=== PATIENT | male | born 1950 | race Caucasian/White ===

== ENCOUNTER 2019-07-28 08:14 | Inpatient (IN) | payer MEDICARE, OTHER ==
[~2019-07-28] VITALS: Ht 182.9 cm; Wt 80.0 kg
[~2019-07-28 08:14] MED LIST: CEPH500C PO
[2019-07-28 08:19] VITALS: Ht 182.9 cm; Wt 80.0 kg
[2019-07-28] MEDS ORDERED: VANCOMYCIN 1 GM (PMX) 250 ML IVPB STA (08:25)
[2019-07-28] MEDS ORDERED: PIPER-TAZO 3.375 GM IV (PMX) 100 ML IVPB STA (08:25)
[2019-07-28] MEDS ORDERED: ACETAMINOPHEN 325 MG TAB PO PRN ×2 (10:00→11:30)
[2019-07-28] MEDS ORDERED: ONDANSETRON 4 MG INJ IV PRN (10:00)
[2019-07-28] MEDS ORDERED: HYDROCODONE/APAP (5/325) TAB PO PRN (11:30)
[2019-07-28] MEDS ORDERED: NACL 0.9% 3 ML SYG IV SCH (11:30)
[2019-07-28] MEDS ORDERED: morphine 2 MG INJ IV PRN (11:30)
[2019-07-28] MEDS ORDERED: VANCOMYCIN IV PER PHARMACY XX SCH (11:30)
[2019-07-28] MEDS ORDERED: PIPER-TAZO 3.375 GM IV (PMX) 100 ML IVPB SCH (12:00)
[2019-07-28 16:00] VITALS: BP 114/73; PULSE 62; RESP 18
[2019-07-28] MEDS: PIPER-TAZO 3.375 GM IV (PMX) 100 ML IVPB SCH ×2 (16:56→23:36)
[2019-07-28] MEDS: SOD CHLORIDE 0.9% 1,000 ML IV SCH ×2 (16:57→20:44)
[2019-07-28 20:11] VITALS: BP 111/66; PULSE 66; RESP 18
[2019-07-28] MEDS: VANCOMYCIN 1.25 GM/NS 250 ML 250 ML IVPB SCH (20:19)
[2019-07-29 02:11] VITALS: BP 102/66; PULSE 60; RESP 18
[2019-07-29] MEDS: PIPER-TAZO 3.375 GM IV (PMX) 100 ML IVPB SCH ×3 (06:28→17:52)
[2019-07-29] MEDS: SOD CHLORIDE 0.9% 1,000 ML IV SCH ×2 (06:31→17:09)
[2019-07-29 08:14] VITALS: BP 106/66; PULSE 59; RESP 19
[2019-07-29] MEDS: VANCOMYCIN 1.25 GM/NS 250 ML 250 ML IVPB SCH ×2 (08:48→20:11)
[2019-07-29 15:22] VITALS: BP 110/67; PULSE 55; RESP 19
[2019-07-29 19:57] VITALS: BP 118/74; PULSE 63; RESP 18
[2019-07-30] MEDS: PIPER-TAZO 3.375 GM IV (PMX) 100 ML IVPB SCH ×4 (00:02→18:31)
[2019-07-30 02:20] VITALS: BP 103/61; PULSE 60; RESP 18
[2019-07-30] MEDS: SOD CHLORIDE 0.9% 1,000 ML IV SCH ×4 (03:09→23:09)
[2019-07-30 07:17] VITALS: BP 114/67; PULSE 49; RESP 18
[2019-07-30] MEDS: VANCOMYCIN 1.25 GM/NS 250 ML 250 ML IVPB SCH ×2 (08:44→20:40)
[2019-07-30] MEDS ORDERED: LIDOCAINE 1% (MDV) 20 ML INJ ONE (09:28)
[2019-07-30] MEDS ORDERED: IOHEXOL 240 MG/ML INJ SCH (10:30)
[2019-07-30 14:18] VITALS: BP 113/70; PULSE 56; RESP 18
[2019-07-30 20:18] VITALS: BP 116/76; PULSE 61; RESP 18
[2019-07-31] MEDS: PIPER-TAZO 3.375 GM IV (PMX) 100 ML IVPB SCH ×4 (00:40→18:17)
[2019-07-31 02:56] VITALS: BP 110/59; PULSE 55; RESP 18
[2019-07-31] MEDS: SOD CHLORIDE 0.9% 1,000 ML IV SCH (05:41)
[2019-07-31 07:39] VITALS: BP 111/62; PULSE 70; RESP 19
[2019-07-31] MEDS: VANCOMYCIN 1.25 GM/NS 250 ML 250 ML IVPB SCH ×2 (09:00→20:44)
[2019-07-31 13:28] VITALS: BP 120/69; PULSE 48; RESP 18
[2019-07-31 20:10] VITALS: BP 115/74; PULSE 60; RESP 18
[2019-08-01] VITALS (12 sets, daily range): BP systolic 102–136; BP diastolic 60–84; PULSE 51–98; RESP 13–25
[2019-08-01] MEDS: PIPER-TAZO 3.375 GM IV (PMX) 100 ML IVPB SCH ×2 (00:17→05:39)
[2019-08-01] MEDS ORDERED: SUCCINYLCHOLINE CHLORIDE 100 MG/5 ML SYG IV ONE (07:41)
[2019-08-01] MEDS ORDERED: PROPOFOL 20 ML ONE (07:41)
[2019-08-01] MEDS ORDERED: LIDOCAINE 2% (SDV) 5 ML INJ ONE (07:41)
[2019-08-01] MEDS ORDERED: MIDAZOLAM 1 MG/ML 2 ML INJ ONE (07:41)
[2019-08-01] MEDS ORDERED: MEPERIDINE 25 MG INJ IV PRN (08:00)
[2019-08-01] MEDS ORDERED: EPHEDrine 25 MG/5 ML SYG IV PRN (08:00)
[2019-08-01] MEDS ORDERED: ONDANSETRON 4 MG INJ IV PRN (08:00)
[2019-08-01] MEDS ORDERED: LABETALOL HCL 20MG INJ IV PRN (08:00)
[2019-08-01] MEDS ORDERED: PROCHLORPERAZINE 10 MG INJ IV PRN (08:00)
[2019-08-01] MEDS ORDERED: HYDROmorphONE 1 MG/5 ML IV SYRINGE IV PRN ×3 (08:00)
[2019-08-01] MEDS ORDERED: DIPHENHYDRAMINE 50 MG INJ IV PRN (08:00)
[2019-08-01] MEDS ORDERED: FENTAnyl 50 MCG/ML VIAL IV PRN ×3 (08:00)
[2019-08-01] MEDS: VANCOMYCIN 1.25 GM/NS 250 ML 250 ML IVPB SCH (08:00)
[2019-08-01] MEDS ORDERED: hydrALAzine 20 MG INJ IV PRN (08:00)
[2019-08-01] MEDS ORDERED: LIDOCAINE 1%/EPI 30 ML INJ ONE (08:22)
[2019-08-01] MEDS ORDERED: THROMBIN 5000 UNIT (RECOTHROM) VIAL ONE ×2 (08:22→10:05)
[2019-08-01] MEDS ORDERED: POLYMYXIN/BACITRACIN 1L IRRIG ONE (08:23)
[2019-08-01] MEDS ORDERED: ROCURONIUM 50 MG INJ ONE ×2 (08:46→09:52)
[2019-08-01] MEDS ORDERED: CEFAZOLIN 1 GM INJ ONE (08:46)
[2019-08-01] MEDS ORDERED: BACITRACIN 50000 UNITS INJ ONE (08:47)
[2019-08-01] MEDS ORDERED: POLYMYXIN B 500000 UNIT INJ ONE (08:49)
[2019-08-01] MEDS ORDERED: ONDANSETRON 4 MG INJ ONE (09:06)
[2019-08-01] MEDS ORDERED: DEXAMETHASONE 4 MG/ML 5 ML INJ ONE (09:06)
[2019-08-01] MEDS ORDERED: FENTAnyl 50 MCG/ML VIAL ONE (09:10)
[2019-08-01] MEDS ORDERED: HYDROmorphONE 2 MG/ML SYG ONE (09:51)
[2019-08-01] MEDS ORDERED: SUGAMMADEX SODIUM 200 MG/2 ML VIAL IV ONE ×2 (10:20→10:22)
[2019-08-01] MEDS ORDERED: BACITRACIN/POLYMYXIN 28.35 GM OINT TOP ONE (10:21)
[2019-08-01] MEDS ORDERED: EPHEDrine 25 MG/5 ML SYG ONE (10:22)
[2019-08-01] MEDS ORDERED: CEFTRIAXONE 2 GM/50 ML (PMX) 50 ML IVPB SCH (12:00)
[2019-08-01] MEDS: ONDANSETRON 4 MG INJ IV PRN ×2 (12:01→18:23)
[2019-08-02 01:12] VITALS: BP 115/63; PULSE 78; RESP 17
[2019-08-02 08:08] VITALS: BP 128/69; PULSE 60; RESP 18
== END 2019-08-02 08:30 | disposition left against medical advice (07) | DRG 28 ==
LOC: E/R 08:14 → 2NE 09:37
PROVIDERS: ADMIT Internal Medicine; ATTEND Internal Medicine
PROC: 0J970ZZ Drainage of Back Subcutaneous Tissue and Fascia, Open Approach (ICD-10-PCS; 2019-08-01)
PROC: 00PV0MZ Removal of Neurostimulator Lead from Spinal Cord, Open Approach (ICD-10-PCS; principal; 2019-08-01 07:30)
DX: T85.733A Infection and inflammatory reaction due to implanted electronic neurostimulator of spinal cord, electrode (lead), initial encounter (principal); G06.2 Extradural and subdural abscess, unspecified; Y83.8 Other surgical procedures as the cause of abnormal reaction of the patient, or of later complication, without mention of misadventure at the time of the procedure; G89.29 Other chronic pain; F17.200 Nicotine dependence, unspecified, uncomplicated
CPT/HCPCS: 36415; 36430; 36573; 71045; 72100; 72128; 72255; 76705; 80048; 80053; 80202; 81003; 83036; 83605; 83735; 84100; 84484; 85025; 85610; 85651; 85730; 86140; 86850; 86900; 86901; 87070; 87086; 87102; 87116; 88300; 88305; 93005; 96365; J0690; J0696; J1100; J1170; J2250; J2405; J2543; J3010; J3370; J7030; P9059